=== PATIENT | male | born 1980 | race Caucasian/White ===

== ENCOUNTER 2017-06-25 14:38 | Emergency (ER) | payer MEDICAID ==
[2017-06-25 15:06] VITALS: BP 110/81
--- NOTE | 2017-06-25 16:56 | ED Physician Documentation ---
PD HPI UPPER EXT INJURY - Stated complaint Stated Complaint: ELBOW PX - Chief complaint Chief Complaint: Ext Problem - History obtained from History obtained from: Patient - History of Present Illness Location: Left, Elbow Type of injury: Other (No known injury.) Timing - onset: How many weeks ago (6) Timing - details: Gradual onset, Still present Associated symptoms: Swelling. No: Discolored Similar symptoms before: Has not had sx before Recently seen: Clinic - Additonal information Additional information: The patient is a 36-year-old male who presents with swelling of his left elbow. He was evaluated at [facility], and subsequently had an outpatient clinic follow-up at [facility] 2 weeks ago, and was advised that the swelling should resolve on its own, and to watch and wait. He presents now because the swelling has increased over the past week. He denies any traumatic injury. He denies fever, and denies any significant pain associated with the swelling. He is right hand dominant. Vaccinations are up-to-date. He recently completed a drug rehabilitation program at [facility]. Review of Systems Constitutional: reports: Fever Nose: denies: Congestion Respiratory: denies: Dyspnea Skin: denies: Rash Musculoskeletal: reports: Joint swelling (Left elbow, posteriorly.). denies: Neck pain, Extremity pain Neurologic: denies: Focal weakness, Numbness, Headache PD PAST MEDICAL HISTORY - Past Medical History Past Medical History: Yes Psych: Depression, Anxiety - Past Surgical History Past Surgical History: Yes Ortho: Other - Present Medications Home Medications: Ambulatory Orders Medication Instructions Recorded Confirmed Bupropion HCl [Wellbutrin Xl] 1 tab PO DAILY 06/25/17 06/25/17 Bupropion HCl [Wellbutrin Xl] 300 mg PO DAILY #15 tab.er.24h 06/25/17 - Allergies Allergies/Adverse Reactions: Allergies Allergy/AdvReac Type Severity Reaction Status Date / Time No Known Drug Allergies Allergy Verified 06/25/17 15:06 - Social History Does the pt smoke?: No Smoking Status: Never smoker Does the pt drink ETOH?: No Does the pt have substance abuse?: No Substance Use and Type: Other (Recent inpatient treatment for drug rehabilitation.) - Immunizations Immunizations are current?: Yes - POLST Patient has POLST: No PD ED PE NORMAL - Vitals Vital signs reviewed: Yes (normal) - General General: Alert and oriented X 3, Well developed/nourished - HEENT HEENT: Atraumatic, Pharynx benign - Cardiac Cardiac: RRR, No murmur - Respiratory Respiratory: No respiratory distress - Derm Derm: No rash - Extremities Extremities: No tenderness to palpate, Normal ROM s pain, Other (There is soft tissue swelling over the olecranon aspect of the left elbow. It is fluctuant, without warmth or erythema, and without tenderness to palpation. He is able to fully flex and extend the elbow. Distal neurovascular is intact.) - Neuro Neuro: Alert and oriented X 3, No motor deficit, No sensory deficit Results - Vitals Vitals: Oxygen O2 Source Room air PD MEDICAL DECISION MAKING - ED course Complexity details: considered differential, d/w patient ED course: The patient's presentation is most consistent with left olecranon bursitis. There is no clinical evidence to suggest infection. There is no clinical indication for imaging study. A 4 inch compression wrap was applied. I discussed with him the diagnosis, expected course of symptoms, as well as potentially worrisome signs or symptoms that should prompt reevaluation in the emergency department. The patient has been using Wellbutrin as part of his drug rehabilitation program. He is almost out of Wellbutrin, so I wrote a prescription for one week 's supply. Departure - Departure Disposition: 01 Home, Self Care Clinical Impression: Olecranon bursitis, left elbow Condition: Stable Instructions: ED Bursitis Elbow Olecranon Prescriptions: Bupropion HCl [Wellbutrin Xl] 300 mg PO DAILY #15 tab.er.24h Comments: By compression wrap. He can use Tylenol or ibuprofen if needed for discomfort. Avoid resting your arm on a hard surface. Follow up with your primary physician within 2 weeks. Call to schedule an appointment. Return to the emergency department if you develop increasing redness, swelling, pain, or otherwise worsening symptoms. Discharge Date/Time: 06/25/17 17:00
== END 2017-06-25 17:00 | disposition home or self-care (01) ==
LOC: ED 14:38
DX: M70.22 Olecranon bursitis, left elbow (principal)
CPT/HCPCS: 99283